=== PATIENT | male | born 1990 | race American Indian/Alaskan Native ===

== ENCOUNTER 2018-08-29 12:44 | Emergency (ER) | payer SELFPAY ==
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
[2018-08-29] MEDS ORDERED: TORADOL IM ONE (14:46)
[2018-08-29] MEDS ORDERED: TYLENOL #3 PO ONE (14:46)
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
--- NOTE | 2018-08-29 16:22 | Cat Scan Report ---
FACIAL CT 08/29/2018 HISTORY: Trauma FINDINGS: CT images of the facial bones were obtained. Images are evaluated in the axial, coronal, an d sagittal planes. There is a fracture through the anterior aspect of the mandible in the midline, with minimal displace ment. There is an additional fracture line through the angle of the left mandible, with minimal displ acement. Advanced associated soft tissue swelling is present. This includes edema extending into the submandibular region, with subcutaneous air present. Facial bones are otherwise unremarkable. Paranasal sinuses are clear. Orbital structures are intact. IMPRESSION: Anterior midline and left lateral mandibular fractures. Prominent soft tissue swelling an d edema, with left submandibular soft tissue air densities noted. All CT scans at this location are performed using dose reduction to ALARA by means of automated expos ure control. Signer Name: Mukund Moe MD Signed: 08/29/2018 4:18 PM Workstation Name: [id number]
[2018-08-29 17:46] VITALS: BP 152/53
== END 2018-08-29 17:36 | disposition home or self-care (01) ==
LOC: ED 12:44
DX: S02.609A Fracture of mandible, unspecified, initial encounter for closed fracture (principal); F17.200 Nicotine dependence, unspecified, uncomplicated; F12.10 Cannabis abuse, uncomplicated; Z79.1 Long term (current) use of non-steroidal anti-inflammatories (NSAID); Z79.899 Other long term (current) drug therapy; Y04.8XXA Assault by other bodily force, initial encounter; Y93.89 Activity, other specified; Y92.89 Other specified places as the place of occurrence of the external cause; Y99.8 Other external cause status
CPT/HCPCS: 70450; 70486; 96372; 99283; J1885